=== PATIENT | male | born 1985 | race African-American/Black ===

== ENCOUNTER 2017-07-02 20:59 | Emergency (ER) | payer SELFPAY ==
[~2017-07-02] VITALS: Ht 188 cm; Wt 81.6 kg
[2017-07-02 21:15] VITALS: BP 130/66
[2017-07-02] MEDS ORDERED: Ketorolac 60mg Inj IM ONE (21:15)
[2017-07-02] MEDS ORDERED: NAPROSYN500 M1 ORAL (21:29)
--- NOTE | 2017-07-02 21:30 | Emergency Room Report ---
History of Present Illness General Chief Complaint: Headache Source: Patient Present Illness HPI This is a 31-year-old male who medication headache. He said is more frequently now because he works graveyard shift and he has a little GERD home. He complaining of headache since last night. Throbbing in nature. Hard time sleeping. No nausea no vomiting. No photophobia. No focal deficit. Did not take any medication for it. Denies any other complaint. Allergies: Coded Allergies: No Known Allergies (Unverified , 07/02/17) Patient History Past Medical History: see triage record, old chart reviewed Past Surgical History: none Pertinent Family History: none Social History: Denies: smoking Immunizations: other Reviewed Nursing Documentation: PMH: Agreed, PSxH: Agreed Nursing Documentation-PMH Past Medical History: No Stated History Review of Systems Eye: Denies: eye pain, blurred vision ENT: Denies: ear pain, nose congestion, throat swelling Respiratory: Denies: cough, shortness of breath Cardiovascular: Denies: chest pain, palpitations Gastrointestinal: Denies: abdominal pain, diarrhea, nausea, vomiting Musculoskeletal: Denies: back pain, joint pain Skin: Denies: rash Neurological: Reports: headache, Denies: numbness Endocrine: Denies: increased thirst, increased urine Hematologic/Lymphatic: Denies: easy bruising All Other Systems: negative except mentioned in HPI Physical Exam Vital Signs Date Time Temp Pulse Resp B/P (MAP) Pulse Ox O2 Delivery O2 Flow Rate FiO2 07/02/17 21:07 97.9 64 18 130/66 97 Room Air vitals normal Sp02 EP Interpretation: reviewed, normal General Appearance: well appearing, no apparent distress, alert Head: normocephalic, atraumatic Eyes: bilateral eye PERRL, bilateral eye EOMI ENT: hearing grossly normal, normal pharynx Neck: full range of motion, supple, no meningismus Respiratory: chest non-tender, lungs clear, normal breath sounds Cardiovascular #1: regular rate, rhythm, no murmur Gastrointestinal: normal bowel sounds, non tender, no mass, no organomegaly, no bruit, non-distended Musculoskeletal: back normal, gait/station normal, normal range of motion Psychiatric: mood/affect normal Skin: warm/dry Medical Decision Making Diagnostic Impression: Primary Impression: Headache Qualified Codes: G44.209 - Tension-type headache, unspecified, not intractable ER Course Patient presents with a headache. Most likely tension in nature. He drove here without any problem. No evidence of meningitis, bleed, or neoplastic process. We'll discharge home. Last Vital Signs Date Time Temp Pulse Resp B/P (MAP) Pulse Ox O2 Delivery O2 Flow Rate FiO2 07/02/17 21:07 97.9 64 18 130/66 97 Room Air Status: improved Disposition: HOME, SELF-CARE Condition: Stable Scripts Naproxen* (NAPROSYN*) 500 Mg Tablet 500 MG ORAL TWICE A DAY, #30 TAB Prov: JENNY PERSON M.D. 07/02/17 Patient Instructions: Tension Headache JENNY PERSON M.D. Jul 02, 2017 21:29
[2017-07-02 21:35] VITALS: BP 130/66
== END 2017-07-02 21:35 | disposition home or self-care (01) ==
LOC: EMR 21:25
DX: R51 Headache (principal)
CPT/HCPCS: 96372; 99284